=== PATIENT | female | born 1985 | race African-American/Black ===

== ENCOUNTER 2018-07-27 19:49 | Emergency (ER) | payer OTHER ==
[~2018-07-27] VITALS: Ht 170.2 cm; Wt 99.1 kg
[2018-07-27 20:05] VITALS: BP 136/85; Ht 170.2 cm; Wt 99.1 kg
== END 2018-07-27 21:57 | disposition left against medical advice (07) ==
LOC: ED 19:49
DX: Z53.21 Procedure and treatment not carried out due to patient leaving prior to being seen by health care provider (principal)